=== PATIENT | female | born 1995 | race African-American/Black ===

== ENCOUNTER 2017-07-12 17:51 | Emergency (ER) | payer OTHER ==
[~2017-07-12] VITALS: Ht 170.2 cm; Wt 72.6 kg
[2017-07-12] MEDS ORDERED: NKM (18:07)
[2017-07-12 18:10] VITALS: BP 137/82
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
[2017-07-12] MEDS ORDERED: IBUPROFEN600 MG ORAL (19:12)
[2017-07-12 19:15] VITALS: BP 130/84
[2017-07-12 19:22] VITALS: BP 130/84
--- NOTE | 2017-07-13 10:52 | Diagnostic Imaging Report ---
Indication: Pain Findings: 3 views of the right shoulder were obtained. No acute fractures, malalignment, erosions or periostitis are identified. Soft tissues are unremarkable. Impression: Negative for acute injury
== END 2017-07-12 19:22 | disposition home or self-care (01) ==
LOC: EMR 19:15
DX: S49.91XA Unspecified injury of right shoulder and upper arm, initial encounter (principal); V03.99XA Pedestrian with other conveyance injured in collision with car, pick-up truck or van, unspecified whether traffic or nontraffic accident, initial encounter; Y92.410 Unspecified street and highway as the place of occurrence of the external cause
CPT/HCPCS: 99283